=== PATIENT | male | born 2000 | race Caucasian/White ===

== ENCOUNTER 2022-11-08 13:00 | Outpatient (CLI) | payer BC ==
[~2022-11-08 13:00] MED LIST: Iopamidol 370 76% 100 ML VIAL ONE
== END 2022-11-08 13:01 | disposition home or self-care (01) ==
LOC: CT 13:00
PROVIDERS: ATTEND Physician Assistant Medical
DX: R11.0 Nausea (principal)
CPT/HCPCS: 74178

== ENCOUNTER 2024-10-16 18:20 | Emergency (ER) | payer BC | END 2024-10-16 19:50 | disposition home or self-care (01) | LOC: ERS 18:20 | DX: F33.9 Major depressive disorder, recurrent, unspecified (principal) | CPT/HCPCS: 99284 ==